=== PATIENT | female | born 1980 | race Caucasian/White ===

== ENCOUNTER 2017-03-17 18:41 | Emergency (ER) | payer MEDICAID ==
--- NOTE | 2017-03-17 18:45 | UC ---
Complaint Female HPI - HPI Summary HPI Summary: 36 YEAR OLD FEMALE PRESENTS WITH POSSIBLE EXPOSURE TO STD. - History Of Current Complaint Stated Complaint: PERSONAL Time Seen by Provider: 03/17/17 18:45 Hx Obtained From: Patient Onset/Duration: Sudden Onset, Gradual Onset Timing: Constant Severity Initially: Moderate Severity Currently: Moderate - Allergies/Home Medications Allergies/Adverse Reactions: Allergies Allergy/AdvReac Type Severity Reaction Status Date / Time Aspirin Allergy See Comment Verified 03/17/17 18:59 Home Medications: Home Medications Multivitamins/Minerals TAB* [Thera M Plus TAB*] 1 tab PO DAILY 03/17/17 [ History Confirmed 03/17/17] PMH/Surg Hx/FS Hx/Imm Hx Previously Healthy: Yes Review of Systems Constitutional: Negative Skin: Negative Eyes: Negative ENT: Negative Respiratory: Negative Cardiovascular: Negative Gastrointestinal: Negative Genitourinary: Negative Motor: Negative Neurovascular: Negative Musculoskeletal: Negative Neurological: Negative Psychological: Negative All Other Systems Reviewed And Are Negative: Yes Physical Exam Triage Information Reviewed: Yes Eye Exam: Normal ENT Exam: Normal Dental Exam: Normal Neck exam: Normal Neck: Positive: 1 Respiratory Exam: Normal Cardiovascular Exam: Normal Abdominal Exam: Normal Musculoskeletal Exam: Normal Neurological Exam: Normal Psychological Exam: Normal Skin Exam: Normal Complaint Female Dx - Differential Dx/Diagnosis Provider Diagnoses: STD EXPOSURE Discharge - Discharge Plan Condition: Stable Disposition: HOME Prescriptions: Fluconazole [Fluconazole 150 mg tab] 150 mg PO ONCE #2 tab Metronidazole [Flagyl 500 MG TAB] 500 mg PO BID #14 tab Sulfamethox/Trimethoprim DS* [Bactrim DS 800/160 TAB*] 1 tab PO BID #10 tab Patient Education Materials: Condom Use (ED), Safe Sex (ED) Referrals: Bj Cabral MD [Primary Care Provider] -
[2017-03-17] MEDS ORDERED: cefTRIAXone VIAL(*) 250 MG VIAL IM ONE (19:00)
[2017-03-17] MEDS ORDERED: Azithromycin TAB* 250 MG PO ONE (19:00)
[2017-03-17 19:02] VITALS: BP 107/70
[2017-03-17] MEDS ORDERED: Lidocaine 1% MPF* 2 ML VIAL ONE (19:04)
--- NOTE | 2017-03-19 15:14 | UC ---
Progress - Progress Note Progress Note: Please notify pt that she had GC Let her know she was properly treated Advise her that she should get retested in 2 weeks to make sure she is cured as there are some treatment failures
== END 2017-03-17 19:36 | disposition home or self-care (01) ==
LOC: UCCORT 18:41
DX: Z20.2 Contact with and (suspected) exposure to infections with a predominantly sexual mode of transmission (principal); Z32.02 Encounter for pregnancy test, result negative; Z88.6 Allergy status to analgesic agent
CPT/HCPCS: 81003; 84702; 87086; 87491; 87591; 87661; 96372; 99202; A9270-GY; G0463; J0696